=== PATIENT | female | born 1975 | race Two or more races ===

== ENCOUNTER 2019-06-07 10:06 | Inpatient (IN) | payer SELFPAY ==
[2019-06-07] VITALS (9 sets, daily range): BP systolic 95–111; BP diastolic 51–65
[~2019-06-07] VITALS: Ht 149.9 cm; Wt 71.0 kg
[2019-06-07 10:37] LABS: Eosinophils # (auto) 0.1 10 ^3/uL (0-0.8); Lymphocytes # (auto) 1.8 10 ^3/uL (0.4-5.4); Monocytes # (auto) 0.4 10 ^3/uL (0-1.3); Neutrophils # (auto) 2.7 10 ^3/uL (1.6-8.6)
[2019-06-07 10:40] LABS: Basophils # (auto) 0.1 10 ^3/uL (0-0.2); Basophils % (auto) 1.1 % (0.0-2.0); Hematocrit 18.5 % (36.0-46.0); Lymphocytes % (auto) 35.5 % (10.0-50.0); Mean Corpuscular Hemoglobin 16.6 pg (28.0-32.0); Mean Corpuscular Hgb Conc. 28.4 g/dL (32.0-36.0); Mean Corpuscular Volume 58.7 fL (80.0-100.0); Monocytes % (auto) 7.1 % (0.0-12.0); Neutrophils % (auto) 54.3 % (37.0-80.0); Nucleated Red Blood Cells % 0.3 %; Platelet Count (auto) 544 10^3/uL (140-450); Red Blood Cells 3.16 10^6/uL (4.0-5.20)
[2019-06-07 10:47] LABS: Red Cell Distribution Width 24.6 % (11.8-14.3)
[2019-06-07 10:49] LABS: Hemoglobin 5.3 g/dL (12.2-16.2)
[2019-06-07 11:08] LABS: Albumin 3.6 g/dL (3.4-5.0); BUN/Creatinine Ratio 16.7; Potassium 3.6 mmol/L (3.5-5.1)
[2019-06-07 11:11] LABS: Bilirubin, Total 0.5 mg/dL (0.2-1.0); Total Protein 8.8 g/dL (6.4-8.2)
[2019-06-07 11:16] LABS: Urine Bacteria NONE SEEN /hpf (None Seen); Urine Blood 1+ /uL (Negative); Urine WBC 1 /hpf (0 - 5)
[2019-06-07 11:53] LABS: % Iron Saturation 1.1 % (15-50)
[2019-06-07 12:09] LABS: Folate (Folic Acid) 9.7 ng/mL (5.38-24)
[2019-06-07] MEDS ORDERED: hydrALAZINE HCL 20 MG/ML VL IV PRN (12:30)
[2019-06-07] MEDS: ONDANSETRON HCL 4 MG/2 ML VIAL IV PRN (13:26)
[2019-06-07] MEDS ORDERED: IOHEXOL 300 MG/ML 100ML BOTTLE IJ ONE (13:27)
[2019-06-07] MEDS: ACETAMINOPHEN 500 MG TAB PO PRN (16:31)
--- NOTE | 2019-06-07 19:30 | NUR ---
Opening Shift Note Assumed care of patient, awake and alert. No S/S of distress/SOB or pain. Instructed on POC and to call for assist PRN, patient and family at bedside verbalized understanding. Safety measures ensured, call light within reach, will continue to monitor for changes Q1hr and PRN.
[2019-06-08] VITALS (8 sets, daily range): BP systolic 97–111; BP diastolic 59–67
[2019-06-08] MEDS: ACETAMINOPHEN 500 MG TAB PO PRN ×2 (05:09→22:42)
[2019-06-08 07:11] LABS: Mean Corpuscular Hemoglobin 20.1 pg (28.0-32.0); Monocytes # (auto) 0.5 10 ^3/uL (0-1.3); Nucleated Red Blood Cells % 0.4 %; White Blood Cell 4.7 10^3/uL (4.4-10.8)
[2019-06-08 07:14] LABS: Basophils # (auto) 0 10 ^3/uL (0-0.2); Eosinophils # (auto) 0.1 10 ^3/uL (0-0.8); Eosinophils % (auto) 2.9 % (0.0-7.0); Hematocrit 22.6 % (36.0-46.0); Lymphocytes # (auto) 1.9 10 ^3/uL (0.4-5.4); Lymphocytes % (auto) 40.4 % (10.0-50.0); Mean Corpuscular Hgb Conc. 30.5 g/dL (32.0-36.0); Monocytes % (auto) 11.2 % (0.0-12.0); Neutrophils # (auto) 2.1 10 ^3/uL (1.6-8.6); Neutrophils % (auto) 44.5 % (37.0-80.0); Platelet Count (auto) 481 10^3/uL (140-450); Red Blood Cells 3.42 10^6/uL (4.0-5.20)
[2019-06-08 07:23] LABS: Red Cell Distribution Width 31.2 % (11.8-14.3)
--- NOTE | 2019-06-08 07:25 | NUR ---
Received a critical Hgb of 6.9. Paged Hospitalist, awaiting call back. Endorsed care to DACIA Ferris
--- NOTE | 2019-06-08 07:25 | NUR ---
Opening shift note Assumed care of patient from NOC RN. Patient resting in bed, AOx4, No S/S of distress, SOB or pain,bed is in lowest locked position, and call light is within reach.awaiting for Hospitalist to call back,Updated patient on plan of care and patient verbalized understanding. Will continue to monitor Q1hr and PRN.
[2019-06-08 07:26] LABS: Hemoglobin 6.9 g/dL (12.2-16.2)
[2019-06-08 07:31] LABS: Potassium 3.8 mmol/L (3.5-5.1)
[2019-06-08 07:38] LABS: Albumin 3.3 g/dL (3.4-5.0); BUN/Creatinine Ratio 18.8; Bilirubin, Total 1.1 mg/dL (0.2-1.0); Calcium 8.2 mg/dL (8.5-10.1); Total Protein 7.9 g/dL (6.4-8.2)
[2019-06-08] MEDS: PANTOPRAZOLE 40 MG TAB PO SCH (10:11)
[2019-06-08] MEDS: traMADol HCL 50 MG TAB PO PRN ×2 (10:12→20:43)
--- NOTE | 2019-06-08 10:15 | NUR ---
PATIENT STILL C/O HEADACHE DESPITE TYLENOL GIVEN EARLIER,PATIENT MEDICATED WITH ULTRAM 50,WILL REASSES
--- NOTE | 2019-06-08 11:20 | NUR ---
NOTIFIED DR. GARRIDO INFORMED AND MADE AWARE OF Hgb.6.9,STATED WILL COME SEE AND EVALUATE PATIENT.
--- NOTE | 2019-06-08 12:25 | NUR ---
PATIENT C/O DIZZINESS VITAL SIGNS TAKEN 115/87,HR75,RR16'O2 SATURATION ON ROOM AIR 98%.O2 AT 2 LITERS NASAL CANNULA,WILL PAGED .
--- NOTE | 2019-06-08 12:35 | NUR ---
MD VISIT DR. GARRIDO HERE TO SEE AND EXAMINED PATIENT,INFORMED OF VITAL SIGNS AND O2 WAS APPLIED,EXAMINED PATIENT AND RECEIVED ORDERS.
--- NOTE | 2019-06-08 13:00 | NUR ---
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
--- NOTE | 2019-06-08 14:50 | NUR ---
MD VISIT OB GYNE HERE TO SEE AND EXAMINED PATIENT, INSTRUCTED PATIENT TO FOLLOW UP OUT PATIENT WITH AN OB G[facility] AT [facility]
--- NOTE | 2019-06-08 15:45 | NUR ---
MD VISIT DR. Demetrio REYNA HERE TO SEE AND EXAMINED PATIENT,RECEIVED ORDERS.
--- NOTE | 2019-06-08 16:05 | NUR ---
BLOOD TRANSFUSION STARTED UNIT # [id number] ( VITAL SIGNS TAKEN PER PROTOCOL ,SEE TRANSFUSION RECORD ) PATIENT INSTRUCTED TO INFORM NURSE FOR ANY TRANSFUSION REACTION NOTED,LIKE CHILLS,FEVER,BACK PAIN,SHORT OF BREATH, OR SWELLING
--- NOTE | 2019-06-08 18:00 | NUR ---
BLOOD TRANSFUSION IN PROGRESS PATIENT TOLERATING WELL
--- NOTE | 2019-06-08 19:10 | NUR ---
BLOOD TRANSFUSION ENDED NO BLOOD TRANSFUSION REACTION NOTED.
--- NOTE | 2019-06-08 19:20 | NUR ---
STATUS UNCHANGED NO DISTRESS, NO DISCOMFORT.REPORT GIVEN TO INCOMING NOC SHIFT RN
[2019-06-08] MEDS: TOPIRAMATE 25 MG TAB PO SCH (22:42)
[2019-06-09 05:00] VITALS: BP 101/62
[2019-06-09] MEDS: traMADol HCL 50 MG TAB PO PRN (06:30)
[2019-06-09 07:09] LABS: Neutrophils # (auto) 3.7 10 ^3/uL (1.6-8.6)
[2019-06-09 07:12] LABS: Basophils # (auto) 0.1 10 ^3/uL (0-0.2); Basophils % (auto) 1.2 % (0.0-2.0); Eosinophils # (auto) 0.1 10 ^3/uL (0-0.8); Eosinophils % (auto) 1.9 % (0.0-7.0); Hematocrit 26.3 % (36.0-46.0); Lymphocytes % (auto) 31.2 % (10.0-50.0); Mean Corpuscular Hemoglobin 20.9 pg (28.0-32.0); Mean Corpuscular Hgb Conc. 30.5 g/dL (32.0-36.0); Mean Corpuscular Volume 68.5 fL (80.0-100.0); Monocytes # (auto) 0.5 10 ^3/uL (0-1.3); Monocytes % (auto) 7.3 % (0.0-12.0); Neutrophils % (auto) 58.4 % (37.0-80.0); Nucleated Red Blood Cells % 0.1 %; Platelet Count (auto) 492 10^3/uL (140-450); Red Blood Cells 3.84 10^6/uL (4.0-5.20); White Blood Cell 6.3 10^3/uL (4.4-10.8)
--- NOTE | 2019-06-09 07:15 | NUR ---
Opening shift note Assumed care of patient from NOC RN. Patient resting in bed, AOx4,No SOB or pain but c/o nausea and trying to vomit.bed in lowest locked position, and call light is within reach ,Updated patient on plan of care and patient verbalized understanding. Will continue to monitor Q1hr and PRN.
[2019-06-09 07:20] LABS: INR 1.11 (0.9-1.15); Partial Thromboplastin Time 26.5 sec (23.64-32.05)
[2019-06-09 07:30] LABS: Red Cell Distribution Width 32.5 % (11.8-14.3)
--- NOTE | 2019-06-09 07:30 | NUR ---
PATIENT C/O NAUSEA AND VOMITING,MEDICATED WITH ZOFRAN SEE eMAR
[2019-06-09] MEDS: ONDANSETRON HCL 4 MG/2 ML VIAL IV PRN (07:59)
[2019-06-09 09:00] VITALS: BP 122/72
[2019-06-09] MEDS ORDERED: SODIUM CHLORIDE 0.9% 1,000 ML IV SCH ×2 (09:00→13:00)
[2019-06-09] MEDS ORDERED: DexAMETHasone INJECTION 10 MG in D5W 5% 50 ML IV SCH (10:00)
[2019-06-09] MEDS: PANTOPRAZOLE 40 MG TAB PO SCH (10:36)
[2019-06-09] MEDS: TOPIRAMATE 25 MG TAB PO SCH ×2 (10:36→23:15)
--- NOTE | 2019-06-09 11:30 | NUR ---
MD VISIT DR.N. REYNA HERE TO SEE AND EXAMINED PATIENT,CLARIFIED ORDER FOR EGD,STATED WILL BE DONE TODAY AROUND 1330,INFORMED PATIENT ATE SMALL AMOUNT OF BAGEL FOR BREAKFAST,RECEIVED ORDER TO GIVE REGLAN 10 MG NOW.
[2019-06-09] MEDS ORDERED: METOCLOPRAMIDE HCL 5MG/ml INJ 2ml VIAL IV ONE (11:45)
[2019-06-09] MEDS ORDERED: SODIUM CHLORIDE LOCK 10 ML ONE (12:07)
[2019-06-09] MEDS ORDERED: FLUMAZENIL 0.1 MG/ML INJ 10ML MDV IV ONE (12:07)
[2019-06-09] MEDS ORDERED: NALOXONE HCL 0.4 MG/ML VIAL ONE (12:07)
[2019-06-09] MEDS ORDERED: LIDOCAINE VISCOUS 2% 15ML UD ONE (12:07)
[2019-06-09] MEDS ORDERED: diphenhdrAMINE HCL 50 MG/1 ML VL ONE (12:08)
--- NOTE | 2019-06-09 12:49 | NUR ---
CONSENT FOR EGD SIGNED BY PATIENT
[2019-06-09] MEDS ORDERED: FER325T PO (12:51)
[2019-06-09 13:00] VITALS: BP 107/64
[2019-06-09] MEDS ORDERED: SODIUM FERR GLUC 62.5MG/5ML 125 MG in SODIUM CHL 0.9% 100 ML IV ONE (13:00)
--- NOTE | 2019-06-09 13:10 | NUR ---
TO GI LAB VIA BED FOR EGD
[2019-06-09] MEDS: MIDAZOLAM HCL 5 MG/ML-1ML VIAL ONE ×2 (13:29→13:31)
[2019-06-09] MEDS: fentaNYL CITRATE 100 MCG/2 ML VL ONE ×2 (13:29→13:31)
[2019-06-09] MEDS: METOCLOPRAMIDE HCL 10 MG TAB PO SCH ×2 (14:00→23:15)
[2019-06-09] MEDS ORDERED: IRON SUCROSE COMPLEX 200 MG in SODIUM CHL 0.9% 100 ML IV ONE (14:15)
--- NOTE | 2019-06-09 14:15 | NUR ---
RECEIVED FROM PACU S/P EGD NO DISTRESS NO DISCOMFORT NO C/O NAUSEA OR VOMITING
[2019-06-09] MEDS: SODIUM CHLORIDE 0.9% 1,000 ML IV SCH ×2 (15:05→20:53)
[2019-06-09 17:19] VITALS: BP 113/63
[2019-06-09] MEDS: SUCRALFATE 1 GM/10 ML ORAL SUSP PO SCH ×2 (17:35→23:14)
--- NOTE | 2019-06-09 19:06 | NUR ---
STATUS UNCHANGED,NO DISTRESS NO DISCOMFORT ,REPORT GIVEN TO INCOMING RN
[2019-06-09 22:00] VITALS: BP 114/51
[2019-06-10] MEDS: SODIUM CHLORIDE 0.9% 1,000 ML IV SCH (04:45)
[2019-06-10 05:03] VITALS: BP 96/61
--- NOTE | 2019-06-10 05:16 | NUR ---
PATIENT HAD NO BOWEL MOVEMENT AND SO NO STOOL SENT TO LAB ORDERED FOR OCCULT BLOOD.
--- NOTE | 2019-06-10 05:21 | NUR ---
SLEPT WELL BUT WAKES TO USE THE BATHROOM.
[2019-06-10] MEDS: METOCLOPRAMIDE HCL 10 MG TAB PO SCH (06:11)
[2019-06-10 06:14] LABS: Hematocrit 25.7 % (36.0-46.0)
--- NOTE | 2019-06-10 06:25 | NUR ---
CRITICAL LAB RESULT CALLED AT 0625. HEMOGLOBIN 6G/DL HOSPITALIST [place]. AWAITING RESPONSE. Addendum: 06/10/19 at 0631 by OCTAVIO MUNOZ RN RN WRONG PATIENT.
[2019-06-10] MEDS: SUCRALFATE 1 GM/10 ML ORAL SUSP PO SCH ×2 (06:35→11:52)
--- NOTE | 2019-06-10 07:30 | NUR ---
Opening Shift Note Assumed care of patient, awake and alert. No S/S of distress/SOB or pain. Instructed on POC and to call for assist PRN, will continue to monitor for changes Q1hr and PRN.
--- NOTE | 2019-06-10 08:19 | NUR ---
Discussed with pt eligibility options for medical coverage based on their current situation. Pt referred to Shena Martin, [facility] [employer] Specialist to assist with process for Med-klarissa insurance coverage. Advised pt that additional information regard D/?C planning would be provided prior to their discharge. Will follow up with Dale regarding the insurance status. currently listed as having no current
[2019-06-10 09:28] VITALS: BP 95/64
[2019-06-10] MEDS ORDERED: PANT40TA2 PO (10:04)
[2019-06-10] MEDS ORDERED: TOPI25TA84 PO (10:04)
[2019-06-10] MEDS: TOPIRAMATE 25 MG TAB PO SCH (10:16)
[2019-06-10] MEDS: PANTOPRAZOLE 40 MG TAB PO SCH (10:16)
--- NOTE | 2019-06-10 11:00 | NUR ---
Dr. Rodriges in to see patient as hospitalist.
[2019-06-10] MEDS ORDERED: IRON SUCROSE COMPLEX 200 MG in SODIUM CHL 0.9% 100 ML IV SCH (12:00)
[2019-06-10] MEDS ORDERED: SUCR1TAB38 PO (13:15)
[2019-06-10 14:16] VITALS: BP 109/72
[2019-06-10 15:04] VITALS: BP 95/64
--- NOTE | 2019-06-10 15:57 | NUR ---
assessment Patient is a 43 year old female who is alert and oriented. Patients cognitive abilities are intact. Prior to admission patient lived home with family and functioned independently. Patient informed me she is able to care for her own ADLs. Per patient she will return home to her prior living arrangements post discharge and family will transport her home. Patient has no insurance. Per patient her family income is 1,500.00 per month. Patient has been assessed by Dale Martin of [facility]. Patient may qualify for Medi-klarissa if she brings back all her paperwork. I have provided patient with resources for [facility], Dr. Hughes, and [facility] urgent care for follow up visits. I have provided patient with a prescription card from community assistance program. I informed patient she has a right to speak to a clinical social work therapist regarding all care. I informed patient she has a right to participate in any and all discharge planning. Patient does not have a POA and advanced directive. I have offered patient information on POA and advanced directives. I informed the patient the advantages and benefits of having an Advanced Directive. Patient verbalized understanding and agreed to discharge plan. Addendum: 06/10/19 at 1558 by Flower VILCHIS Amended: Links added.
== END 2019-06-10 17:30 | disposition home or self-care (01) | DRG 103 ==
LOC: ER 10:06 → OVERFLOW 10:07 → WEST WING 14:13
PROVIDERS: ADMIT Nurse Practitioner Acute Care; ATTEND Internal Medicine
PROC: 30233N1 Transfusion of Nonautologous Red Blood Cells into Peripheral Vein, Percutaneous Approach (ICD-10-PCS; principal; 2019-06-07)
PROC: 0DB68ZZ Excision of Stomach, Via Natural or Artificial Opening Endoscopic (ICD-10-PCS; 2019-06-09)
PROC: 0DB88ZX Excision of Small Intestine, Via Natural or Artificial Opening Endoscopic, Diagnostic (ICD-10-PCS; 2019-06-09)
DX: G43.101 Migraine with aura, not intractable, with status migrainosus (principal); D50.0 Iron deficiency anemia secondary to blood loss (chronic); G43.B0 Ophthalmoplegic migraine, not intractable; K29.70 Gastritis, unspecified, without bleeding; K44.9 Diaphragmatic hernia without obstruction or gangrene; K31.7 Polyp of stomach and duodenum; T50.995A Adverse effect of other drugs, medicaments and biological substances, initial encounter; N92.0 Excessive and frequent menstruation with regular cycle; N92.1 Excessive and frequent menstruation with irregular cycle; Z79.899 Other long term (current) drug therapy; Z82.49 Family history of ischemic heart disease and other diseases of the circulatory system; Z83.3 Family history of diabetes mellitus; Z98.891 History of uterine scar from previous surgery; Z90.89 Acquired absence of other organs; Z90.49 Acquired absence of other specified parts of digestive tract; Z82.61 Family history of arthritis; Z83.42 Family history of familial hypercholesterolemia; Y92.098 Other place in other non-institutional residence as the place of occurrence of the external cause
CPT/HCPCS: 36415; 43239; 43251; 70450; 74177; 76856; 80053; 81001; 81025; 82378; 82607; 82746; 83540; 83550; 84443; 85014; 85018; 85025; 85045; 85610; 85730; 86677; 86850; 86900; 86901; 86920; 99291; G0378; J1100; J1756; J2250; J2405; J7060

== ENCOUNTER 2019-07-09 16:56 | Emergency (ER) | payer SELFPAY ==
[~2019-07-09] VITALS: Ht 149.9 cm; Wt 65.8 kg
[~2019-07-09 16:56] MED LIST: FER325T PO; PANT40TA2 PO; SUCR1TAB38 PO; TOPI25TA84 PO
[2019-07-09 17:11] VITALS: BP 118/64
[2019-07-09 17:31] LABS: Basophils # (auto) 0 10 ^3/uL (0-0.2); Basophils % (auto) 0.5 % (0.0-2.0); Eosinophils # (auto) 0.1 10 ^3/uL (0-0.8); Hematocrit 33.8 % (36.0-46.0); Hemoglobin 11.1 g/dL (12.2-16.2); Mean Corpuscular Hemoglobin 26.1 pg (28.0-32.0); Mean Corpuscular Hgb Conc. 32.8 g/dL (32.0-36.0); Mean Corpuscular Volume 79.5 fL (80.0-100.0); Monocytes # (auto) 0.5 10 ^3/uL (0-1.3); Neutrophils # (auto) 4.4 10 ^3/uL (1.6-8.6); Nucleated Red Blood Cells % 0.1 %; Red Blood Cells 4.25 10^6/uL (4.0-5.20)
[2019-07-09 17:33] LABS: Eosinophils % (auto) 1.5 % (0.0-7.0); Lymphocytes # (auto) 2.4 10 ^3/uL (0.4-5.4); Lymphocytes % (auto) 31.6 % (10.0-50.0); Monocytes % (auto) 7.2 % (0.0-12.0); Neutrophils % (auto) 59.2 % (37.0-80.0); Platelet Count (auto) 245 10^3/uL (140-450); White Blood Cell 7.5 10^3/uL (4.4-10.8)
[2019-07-09 17:42] LABS: Albumin 3.6 g/dL (3.4-5.0); Calcium 7.9 mg/dL (8.5-10.1); Potassium 3.6 mmol/L (3.5-5.1)
[2019-07-09 17:46] LABS: BUN/Creatinine Ratio 19.4; Bilirubin, Total 0.3 mg/dL (0.2-1.0); Total Protein 8.4 g/dL (6.4-8.2)
[2019-07-09 18:05] LABS: Red Cell Distribution Width 33.9 % (11.8-14.3)
== END 2019-07-09 18:15 | disposition home or self-care (01) ==
LOC: ER 16:56
DX: N93.8 Other specified abnormal uterine and vaginal bleeding (principal); Z90.49 Acquired absence of other specified parts of digestive tract; Z79.899 Other long term (current) drug therapy
CPT/HCPCS: 36415; 80053; 85025

== ENCOUNTER 2022-01-14 18:14 | Emergency (ER) | payer SELFPAY ==
[~2022-01-14] VITALS: Ht 149.9 cm; Wt 72.7 kg
[~2022-01-14 18:14] MED LIST changes: +SUCR1TAB22 PO; -SUCR1TAB38 PO
[2022-01-14 19:45] LABS: Basophils # (auto) 0.1 10 ^3/uL (0-0.2); Eosinophils # (auto) 0.1 10 ^3/uL (0-0.8); Eosinophils % (auto) 0.7 % (0.0-7.0); Lymphocytes # (auto) 1.4 10 ^3/uL (0.4-5.4)
[2022-01-14 19:47] LABS: Basophils % (auto) 0.6 % (0.0-2.0); Hematocrit 29.4 % (36.0-46.0); Hemoglobin 8.8 g/dL (12.2-16.2); Lymphocytes % (auto) 13.2 % (10.0-50.0); Mean Corpuscular Hemoglobin 19.6 pg (28.0-32.0); Mean Corpuscular Volume 65.4 fL (80.0-100.0); Monocytes # (auto) 0.8 10 ^3/uL (0-1.3); Neutrophils # (auto) 8.6 10 ^3/uL (1.6-8.6); Neutrophils % (auto) 78.5 % (37.0-80.0); White Blood Cell 10.9 10^3/uL (4.4-10.8)
[2022-01-14 20:05] LABS: Red Cell Distribution Width 25.2 % (11.8-14.3)
[2022-01-14 20:09] LABS: Albumin 3.6 g/dL (3.4-5.0); Potassium 3.1 mmol/L (3.5-5.1)
[2022-01-14 20:13] LABS: BUN/Creatinine Ratio 14.7; Bilirubin, Total 0.4 mg/dL (0.2-1.0); Total Protein 8.8 g/dL (6.4-8.2)
[2022-01-14] MEDS ORDERED: POTASSIUM CHL 20 Meq TABLET PO ONE (21:00)
[2022-01-14] MEDS ORDERED: HYDR-4902 PO (21:19)
[2022-01-14] MEDS ORDERED: ONDA-144 PO (21:19)
[2022-01-14] MEDS ORDERED: ONDANSETRON ODT 4 MG TAB PO ONE (21:30)
[2022-01-14] MEDS ORDERED: HYDROcodone-ACET 10/325MG TAB PO ONE (21:30)
[2022-01-14 21:50] VITALS: BP 122/76
== END 2022-01-15 01:12 | disposition home or self-care (01) ==
LOC: EDBD 18:14 → ER 18:16
DX: E87.6 Hypokalemia (principal); N20.0 Calculus of kidney; R10.2 Pelvic and perineal pain; Z90.49 Acquired absence of other specified parts of digestive tract
CPT/HCPCS: 36415; 74176; 80053; 82150; 83690; 84702; 85025; 93005; 99285; Q0162

== ENCOUNTER 2023-07-10 12:20 | Inpatient (IN) | payer SELFPAY ==
[~2023-07-10] VITALS: Ht 149.9 cm; Wt 74.2 kg
[~2023-07-10 12:20] MED LIST changes: +HYDR-4902 PO; +ONDA-144 PO; -SUCR1TAB22 PO; +SUCR1TAB31 PO
[2023-07-10 13:43] LABS: Basophils # (auto) 0 10 ^3/uL (0-0.2); Eosinophils # (auto) 0.1 10 ^3/uL (0-0.8); Lymphocytes # (auto) 2.1 10 ^3/uL (0.4-5.4); Neutrophils # (auto) 3.9 10 ^3/uL (1.6-8.6); Red Blood Cells 3.92 10^6/uL (4.0-5.20)
[2023-07-10 13:45] LABS: Basophils % (auto) 0.5 % (0.0-2.0); Eosinophils % (auto) 1.8 % (0.0-7.0); Hematocrit 23.3 % (36.0-46.0); Lymphocytes % (auto) 31.6 % (10.0-50.0); Mean Corpuscular Hemoglobin 16.8 pg (28.0-32.0); Mean Corpuscular Hgb Conc. 28.2 g/dL (32.0-36.0); Mean Corpuscular Volume 59.5 fL (80.0-100.0); Monocytes # (auto) 0.5 10 ^3/uL (0-1.3); Monocytes % (auto) 7.9 % (0.0-12.0); Neutrophils % (auto) 58.2 % (37.0-80.0); Nucleated Red Blood Cells % 0.1 %; White Blood Cell 6.6 10^3/uL (4.4-10.8)
[2023-07-10 13:54] LABS: Red Cell Distribution Width 21.5 % (11.8-14.3)
[2023-07-10 13:57] LABS: Urine Bacteria None Seen /hpf (None Seen)
[2023-07-10 14:01] LABS: Hemoglobin 6.6 g/dL (12.2-16.2)
[2023-07-10 14:16] LABS: Urine Blood Negative /uL (Negative); Urine Clarity Turbid (Clear); Urine Color Light-Yellow (Yellow); Urine Hyaline Cast FEW /lpf (0 - 2); Urine Mucus FEW (None Seen); Urine Protein, UAD Negative (Negative); Urine Specific Gravity 1.016 (1.001-1.035); Urine Urobilinogen Normal (Negative); Urine WBC 1 /hpf (0 - 5); Urine pH 6.5 (5.0-9.0)
[2023-07-10 14:54] LABS: Platelet Estimate Adequate
[2023-07-10 14:55] LABS: Anisocytosis Slight; Hypochromia Marked; Stomatocytes Few
[2023-07-10] MEDS ORDERED: ALBUTEROL SULF 2.5 MG/0.5ML(0.5%) NEB SOLN NEB PRN (16:45)
[2023-07-10] MEDS ORDERED: HYDROcodone-ACET 5/325MG TAB PO PRN (16:45)
[2023-07-10] MEDS ORDERED: MORPHINE SULFATE INJ 2 MG/ml SYRG IV PRN (16:45)
[2023-07-10] MEDS ORDERED: IPRATROPIUM BROM 0.5 MG/2.5ML INH SOL NEB PRN (16:45)
[2023-07-10] MEDS ORDERED: DOCUSATE SOD 100 MG CAP PO PRN (16:45)
[2023-07-10] MEDS ORDERED: ONDANSETRON HCL 4 MG/2 ML VIAL IV PRN (16:45)
[2023-07-10 17:12] LABS: % Iron Saturation 4.3 % (15-50)
[2023-07-10 21:20] VITALS: BP 141/64; PULSE 82; RESP 16; TEMP 99.2; O2SAT 98
[2023-07-11] VITALS (12 sets, daily range): BP systolic 95–122; BP diastolic 54–80; PULSE 53–87; RESP 12–19; TEMP 36.8; O2SAT 97–98
[2023-07-11] MEDS: ACETAMINOPHEN 500 MG TAB PO PRN (05:29)
[2023-07-11] MEDS ORDERED: IRON SUCROSE COMPLEX 100 ML IV SCH (12:00)
[2023-07-11 13:54] LABS: Hematocrit 29.5 % (36.0-46.0); Hemoglobin 8.9 g/dL (12.2-16.2)
[2023-07-11] MEDS ORDERED: FERR-7 PO (14:24)
== END 2023-07-11 17:20 | disposition home or self-care (01) | DRG 812 ==
LOC: ER 12:20 → OVERFLOW 16:52 → CENTRAL 07-11 06:37
PROVIDERS: ADMIT Nurse Practitioner Acute Care; ATTEND Nurse Practitioner Acute Care
PROC: 30233N1 Transfusion of Nonautologous Red Blood Cells into Peripheral Vein, Percutaneous Approach (ICD-10-PCS; principal; 2023-07-11)
DX: D50.9 Iron deficiency anemia, unspecified (principal); N92.6 Irregular menstruation, unspecified; E66.9 Obesity, unspecified; N92.0 Excessive and frequent menstruation with regular cycle; Z90.49 Acquired absence of other specified parts of digestive tract; Z79.899 Other long term (current) drug therapy; Z68.33 Body mass index [BMI] 33.0-33.9, adult; Z82.49 Family history of ischemic heart disease and other diseases of the circulatory system; Z83.3 Family history of diabetes mellitus; Z83.42 Family history of familial hypercholesterolemia; Z82.61 Family history of arthritis
CPT/HCPCS: 36415; 76856; 81001; 83540; 83550; 85014; 85018; 85025; 86850; 86900; 86901; 86920; G0378

== ENCOUNTER 2023-10-13 12:00 | Emergency (ER) | payer SELFPAY ==
[~2023-10-13] VITALS: Ht 149.9 cm; Wt 75.1 kg
[~2023-10-13 12:00] MED LIST changes: +FERR-7 PO
[2023-10-13 13:21] VITALS: BP 111/69; PULSE 70; RESP 17; TEMP 97.8; O2SAT 95
[2023-10-13 13:59] LABS: Urine Bacteria FEW /hpf (None Seen); Urine Blood 2+ /uL (Negative); Urine Clarity Turbid (Clear); Urine Mucus FEW (None Seen); Urine Protein, UAD 1+ (Negative); Urine Specific Gravity 1.022 (1.001-1.035); Urine Urobilinogen Normal (Negative); Urine WBC 668 /hpf (0 - 5)
[2023-10-13 14:03] LABS: Urine Color STRAW (Yellow)
[2023-10-13] MEDS ORDERED: NITR-87 PO (14:15)
== END 2023-10-13 14:27 | disposition home or self-care (01) ==
LOC: ER 12:00
DX: N39.0 Urinary tract infection, site not specified (principal); Z79.899 Other long term (current) drug therapy; Z79.891 Long term (current) use of opiate analgesic; Z90.49 Acquired absence of other specified parts of digestive tract; Z98.890 Other specified postprocedural states
CPT/HCPCS: 81001

== ENCOUNTER 2024-02-23 12:30 | Emergency (ER) | payer MEDICAID, SELFPAY ==
[~2024-02-23] VITALS: Ht 149.9 cm; Wt 79.3 kg
[~2024-02-23 12:30] MED LIST changes: +NITR-87 PO
[2024-02-23 12:42] VITALS: BP 135/74; PULSE 83; RESP 20; O2SAT 96
--- NOTE | 2024-02-23 13:01 | ED.PDOC ---
SAMPLE PULLER HPI Comments 48y F who presents to the ED for chief complaint of vaginal bleeding. Pt states she has history of heavy periods and states she has been having heavy periods with associated lower pelvic pain. Pt states she has been having heavy periods since October 06, 2023 and states she has been going through 7-8 pads daily. Pt states she has been having associated nausea, dizziness and lightheaded but otherwise denies headache, dysuria, fever, cough, chills,or hematuria. Pt states she has been to OB for her complaints and states she previously had imaging done which came back unremarkable. Pt otherwise has been taking Pepcid for her abdominal pain and states she also takes iron pills for her anemia. Pt otherwise has noted stable vitals in the ED with all vitals in normal range. Pt otherwise denies any other symptoms at this time. Chief Complaint: Vaginal Bleed Time Seen by MD: 12:59 Reviewed Notes: Medications Allergies: Coded Allergies: NO KNOWN ALLERGIES (Unverified , 06/07/19) Home Meds Active Scripts Dicyclomine Hcl (BENTYL CAPSULE) 10 Mg Cp, 2 CAP PO QID PRN, #30 CAP 11 Refills prn abdominal pain Prov:ANGELICA CARDONA MD 02/23/24 Ondansetron Odt 4MG Tab (ZOFRAN PO) 4 Mg Tb, 4 MG PO TID PRN, #30 TAB prn nausea/vomiting ODT TAB-DISSOLVE IN MOUTH, THEN SWALLOW Prov:ANGELICA CARDONA MD 02/23/24 Medroxyprogesterone Acetate (Medroxyprogesterone Aceta) 10 Mg Tab, 10 MG PO DAILY for 10 Days, #10 TAB Prov:ANGELICA CARDONA MD 02/23/24 Nitrofurantoin Monohydrate Mac (Macrobid) 100 Mg Cap, 100 MG PO BID for 7 Days, #14 CAP Prov:KATARINA KRAMER 10/13/23 Ferrous Sulfate (Iron) 325 Mg Tab, 325 MG PO BID for 60 Days, #120 TAB Prov:SHIV KIRBY NP 07/11/23 Hydrocodone-Acetaminophen (Hydrocodone Bitartrate/AC 5-325 mg) 1 Tab Tab, 1 TAB PO QIDPRN, #20 TAB Prov:MARCI GALVIN MD 01/14/22 Ondansetron (Zofran) 4 Mg Tab, 4 MG PO QIDPRN, #20 MG Prov:MARCI GALVIN MD 01/14/22 Sucralfate (CARAFATE) 1 Gm Tab, 1 GM PO BID, #60 TAB Prov:RACHAEL GARRIDO MD 06/10/19 Topiramate (Topiramate) 25 Mg Tab, 25 MG PO BID, #60 TAB Prov:RCAHAEL GARRIDO MD 06/10/19 Pantoprazole Sodium Sesquihydr (Protonix) 40 Mg Tab, 40 MG PO DAILY, #30 TAB Prov:RACHAEL GARRIDO MD 06/10/19 Ferrous Sulfate (FERROUS SULFATE) 325 Mg Tb, 1 TAB PO BID, #60 TAB Prov:RACHAEL GARRIDO MD 06/09/19 Information Source: Patient Mode of Arrival: Ambulatory Brought in by: self Past Medical History PAST MEDICAL HISTORY: Anemia Surgical History: Cholecystectomy, , 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) Family History Family History: Reviewed,noncontributory to illness Social History Smoker: Non-Smoker Alcohol: Denies ETOH Use Drugs: Denies Drug Use Lives In: Home Constitutional: denies: chills, diaphoresis, fatigue, fever, malaise, sweats, weakness, others EENTM: denies: blurred vision, double vision, ear bleeding, ear discharge, ear drainage, ear pain, ear ringing, eye pain, eye redness, hearing loss, mouth pain, mouth swelling, nasal discharge, nose bleeding, nose congestion, nose pain, photophobia, tearing, throat pain, throat swelling, voice changes, others Respiratory: denies: cough, hemoptysis, orthopnea, SOB at rest, shortness of breath, SOB with excertion, stridor, wheezing, others Cardiovascular: denies: chest pain, dizzy spells, diaphoresis, Dyspnea on exertion, edema, irregular heart beat, left arm pain, lightheadedness, palpitations, PND, syncope, others Gastrointestinal: reports: nausea; denies: abdomen distended, abdominal pain, blood streaked bowels, constipated, diarrhea, dysphagia, difficulty swallowing, hematemesis, melena, poor appetite, poor fluid intake, rectal bleeding, rectal pain, vomiting, others Genitourinary: reports: abnormal vagina bleeding; denies: burning, dyspareunia, dysuria, flank pain, frequency, hematuria, incontinence, pain, , vagina discharge, urgency, others Neurological: reports: dizziness; denies: fainting, headache, left sided numbness, left sided weakness, numbness, paresthesia, pre-existing deficit, right sided numbness, right sided weakness, seizure, speech problems, tingling, tremors, weakness, others Musculoskeletal: denies: back pain, gout, joint pain, joint swelling, muscle pain, muscle stiffness, neck pain, others Integumetry: denies: bruises, change in color, change in hair/nails, dryness, laceration, lesions, lumps, rash, wounds, others Allergic/Immunocompromised: denies: Difficulty Healing, Frequent Infections, Hives, Itching, others Hematologic/Lymphatic: denies: anemia, blood clots, easy bleeding, easy bruising, swollen glands, others Endocrine: denies: excessive hunger, excessive sweating, excessive thirst, excessive urination, flushing, intolerance to cold, intolerance to heat, unexplained weight gain, unexplained weight loss, others Psychiatric: denies: anxiety, bipolar disorder, depression, hopeless, panic disorder, schizophrenia, sleepless, suicidal, others All Other Systems: Reviewed and Negative Physical Exam General Appearance: No Apparent Distress, Obese HEENT: Other (Pupils symmetric, no facial asymmetry, moist mucous membranes) Neck: Full Range of Motion, Normal Inspection Respiratory: Lungs Clear, No Accessory Muscle Use, No Respiratory Distress, Normal Breath Sounds Cardiovascular: No Edema, No JVD, Regular Rate/Rhythm Breast Exam: Deferred Gastrointestinal: LLQ, RLQ, Soft, Suprapubic, Tenderness Genitalia: Deferred Pelvic: Deferred Rectal: Deferred Extremities: Normal inspection, Normal range of motion, Non-tender, No pedal edema Neurologic: Alert (Oriented x4), Other (Ambulatory without difficulty, no gross focal deficit.) Cerebellar Function: NOT DONE Reflexes: NOT DONE Skin: Dry, Pallor, Warm Lymphatic: NOT DONE Was a procedure done? 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) Vaginal Bleeding: Hormonal, Menorrhagia, Menstrual Bleeding, Myomatous Uterus, UTI, Vaginitis, Other (severe anemia, appendicitis, colitis, diverticular disease, gastroenteritis, among others) X-Ray, Labs, Meds, VS Vital Signs Date Time Temp Pulse Resp B/P (MAP) Pulse Ox O2 Delivery O2 Flow Rate FiO2 02/23/24 12:42 97.8 83 20 135/74 (94) 96 Lab Test 02/23/24 13:16 02/23/24 13:14 Range/Units White Blood Count 7.8 4.4-10.8 10^3/uL Red Blood Count 4.12 4.0-5.20 10^6/uL Hemoglobin 10.4 L 12.2-16.2 g/dL Hematocrit 32.4 L 36.0-46.0 % Mean Corpuscular Volume 78.6 L 80.0-100.0 fL Mean Corpuscular Hemoglobin 25.3 L 28.0-32.0 pg Mean Corpuscular Hemoglobin Concent 32.1 32.0-36.0 g/dL Red Cell Distribution Width 18.7 H 11.8-14.3 % Platelet Count 455 H 140-450 10^3/uL Mean Platelet Volume 7.2 6.9-10.8 fL Neutrophils (%) (Auto) 63.2 37.0-80.0 % Lymphocytes (%) (Auto) 28.8 10.0-50.0 % Monocytes (%) (Auto) 6.1 0.0-12.0 % Eosinophils (%) (Auto) 1.6 0.0-7.0 % Basophils (%) (Auto) 0.3 0.0-2.0 % Neutrophils # (Auto) 4.9 1.6-8.6 10 ^3/uL Lymphocytes # (Auto) 2.3 0.4-5.4 10 ^3/uL Monocytes # (Auto) 0.5 0-1.3 10 ^3/uL Eosinophils # (Auto) 0.1 0-0.8 10 ^3/uL Basophils # (Auto) 0 0-0.2 10 ^3/uL Nucleated Red Blood Cells 0.1 % Prothrombin Time 10.5 9.3-11.8 sec Prothrombin Time INR 0.99 0.9-1.15 Activated Partial Thromboplast Time 25.7 24.5-34.5 SEC Sodium Level 139 136-145 mmol/L Potassium Level 3.5 3.5-5.1 mmol/L Chloride Level 104 98-107 mmol/L Carbon Dioxide Level 28 20-31 mmol/L Anion Gap 7 5-15 Blood Urea Nitrogen 9 9-23 mg/dL Creatinine 0.61 0.550-1.02 mg/dL Glomerular Filtration Rate Calc 110 >90 mL/min BUN/Creatinine Ratio 14.8 10.0-20.0 Serum Glucose 124 H 74-106 mg/dL Calcium Level 8.9 8.7-10.4 mg/dL Beta HCG, Quantitative 1.3 L 1.5-4.2 mIU/mL Urine Color Light-red Yellow Urine Clarity Ex.turbid Clear Urine pH 5.5 5.0-9.0 Urine Specific [place] 1.025 1.001-1.035 Urine Protein 1+ H Negative Urine Ketones Trace Negative Urine Blood 3+ H Negative /uL Urine Nitrite Negative Negative Urine Bilirubin Negative Negative Urine Urobilinogen Normal Negative mg/dL Urine Leukocyte Esterase 1+ Negative /uL Urine RBC 9919 0 - 4 /hpf Urine WBC 110 0 - 5 /hpf Urine Squamous Epithelial Cells None seen <5 /hpf Urine Bacteria None seen None Seen /hpf Urine Glucose Normal Normal mg/dL [place] [address] Ph: [phone] DIAGNOSTIC IMAGING Diagnostic Imaging Report : [id number] Signed PATIENT: HILDA HILL: [id number] UNIT: [id number] : 1975 LOC: ER ROOM / BED: / AGE / SEX: 48 / F ADM STATUS: REG ER SERVICE 1251 ORDERING PHYSICIAN: ANGELICA CARDONA MD PROCEDURE(s): PELUS - PELVIC REASON: vag bleed ORDER NUMBER(s): [id number], ACCESSION NUMBER(s): [id number] CLINICAL HISTORY: Vaginal bleeding COMPARISON: US PELVIC on DOS: 07/10/23, PELVIC on DOS: 06/07/19 TECHNIQUE: Transabdominal grayscale sonographic imaging of the uterus and ovaries was performed, assisted by color Doppler technique. Duplex Doppler ultrasound of both ovaries was also performed. Patient refused transvaginal imaging. FINDINGS: The uterus measures 13.0 x 6.5 x 5.6 cm. There is heterogeneous echogenicity. Hypoechoic mass along the left side of the uterine fundus , likely subserosal fibroid measuring up to 1.8 cm. Endometrial thickness measures 0.8 cm, within normal limits or premenopausal. Cervix appears prominent. Heterogeneous echogenicity of the cervix. Possible small fluid collection in the cervix Neither ovary was able to be visualized. IMPRESSION: 1. Heterogeneous uterus with possible fibroid. 2. Cervix is prominent and heterogeneous with suspected fluid in the endocervical canal. 3. Neither ovary was able to be visualized. ATED BY: CHAPITO FLORES DO DICTATED DATE/TIME: 02/23/24 1440 PROCEDURE(s): ABPL - CT AB PEL WO CON-NO ORAL OR IV REASON: low abd pain ORDER NUMBER(s): [id number], ACCESSION NUMBER(s): [id number] Procedure: CT CT AB PEL WO CON-NO ORAL OR IV 02/23/2024 02:17 PM Indication: low abd pain Comparison Study: None available at time of dictation. Technique: Axial images were obtained and reformatted in coronal and sagittal planes. All CT scans at this medical facility are performed using dose modulation techniques as appropriate to a performed exam including the following: Automated exposure control was utilized; adjustment of the MA and/or KV according to patient size; and use of iterative reconstruction technique. CT Dose: CTDI volume is 15.32 mGy. Dose-length product is 769.51 mGy*cm FINDINGS: Lower Chest: Unremarkable. Hepatobiliary: Gallbladder is surgically absent. Hepatic steatosis. Spleen: Unremarkable. Pancreas: Unremarkable. Adrenal Glands: Unremarkable. tract: The kidneys are normal in size bilaterally without hydronephrosis . Few subcentimeter nonobstructing bilateral renal calculi are seen measuring up to 3 mm The urinary bladder is unremarkable. GI tract: The stomach is grossly normal in appearance. No evidence of small bowel obstruction. The large bowel is unremarkable. The appendix is normal. Lymphatics: No mesenteric, retroperitoneal or periportal lymphadenopathy. Vasculature: The abdominal aorta is normal in in caliber. Pelvic Organs: Elongated uterus. No adnexal lesions identified. Bones/soft tissues: No acute abnormality. Other: None. IMPRESSION: 1. No CT evidence for acute intra-abdominal or intrapelvic process. X-Ray, Labs, Meds, VS Comment 48-year-old female with a history of anemia and heavy menses complaining of ongoing heavy vaginal bleeding and lower abdominal pain Vitals unremarkable Exam remarkable for lower abdominal tenderness to palpation, mild pallor Pelvic ultrasound: IMPRESSION: 1. Heterogeneous uterus with possible fibroid. 2. Cervix is prominent and heterogeneous with suspected fluid in the endocervical canal. 3. Neither ovary was able to be visualized. CT abdomen and pelvis unremarkable CBC remarkable for hemoglobin 10.4, hematocrit 32.4, platelets 455, basic metabolic panel, coag panel, lactate and hCG unremarkable for any abnormality of acute significance UA shows protein, blood, leukocyte esterase, RBCs and WBCs, no bacteria. Likely represents a contaminated specimen Patient treated with the following in the ED: Cobb 5/325 mg p.o., Zofran ODT 4 mg p.o. On re-evaluation, patient states pain has improved, vitals are stable, repeat abdominal exam is benign. Hospitalization was considered, however patient had rapid improvement of her symptoms with treatment in the ED, and I no longer feel hospitalization is necessary. Patient appears stable for outpatient follow-up with OBGYN. She will be referred to Dr. Guido. Rx Glenn Avalos Bentyl Time of 1ST Reevaluation: 13:30 Reevaluation 1ST: Unchanged Time of 2ND Reevaluation: 16:26 Patient Education/Counseling: Diagnosis, Treatment Family Education/Counseling: No Family Present Departure 1 Departure Time of Disposition: 16:26 Impression: Primary Impression: Vaginal bleeding Additional Impressions: Anemia Qualified Codes: D64.9 - Anemia, unspecified Uterine fibroid Qualified Codes: D25.9 - Leiomyoma of uterus, unspecified Disposition: HOME / SELF CARE / HOMELESS Condition: Stable Referrals: LINDA GUIDO DO Additional Instructions: Your blood tests showed mild anemia. You do not require a blood transfusion. Your ultrasound showed a uterine fibroid, which is a benign growth that can cause bleeding. Your ultrasound report is below. Your CT scan was unremarkable. I have prescribed medication that may slow down or stop the bleeding. Follow-up establish care with an OBGYN in 1-2 days. I have referred you to Dr. Guido. [address] [address] Ph: [phone] DIAGNOSTIC IMAGING Diagnostic Imaging Report : [id number] Signed PATIENT: CRISTINA HILL ACCT: [id number] UNIT: [id number] : 1975 LOC: ER ROOM / BED: / AGE / SEX: 48 / F ADM STATUS: REG ER SERVICE 1251 ORDERING PHYSICIAN: ANGELICA CARDONA MD PROCEDURE(s): PELUS - PELVIC REASON: vag bleed ORDER NUMBER(s): [id number], ACCESSION NUMBER(s): [id number] CLINICAL HISTORY: Vaginal bleeding COMPARISON: US PELVIC on DOS: 07/10/23, PELVIC on DOS: 06/07/19 TECHNIQUE: Transabdominal grayscale sonographic imaging of the uterus and ovaries was performed, assisted by color Doppler technique. Duplex Doppler ultrasound of both ovaries was also performed. Patient refused transvaginal imaging. FINDINGS: The uterus measures 13.0 x 6.5 x 5.6 cm. There is heterogeneous echogenicity. Hypoechoic mass along the left side of the uterine fundus , likely subserosal fibroid measuring up to 1.8 cm. Endometrial thickness measures 0.8 cm, within normal limits or premenopausal. Cervix appears prominent. Heterogeneous echogenicity of the cervix. Possible small fluid collection in the cervix Neither ovary was able to be visualized. IMPRESSION: 1. Heterogeneous uterus with possible fibroid. 2. Cervix is prominent and heterogeneous with suspected fluid in the endocervical canal. 3. Neither ovary was able to be visualized. ATED BY: CHAPITO FLORES DO DICTATED DATE/TIME: 02/23/24 1440 e-Prescriptions Dicyclomine Hcl (BENTYL CAPSULE) 10 Mg Cp 2 CAP PO QID PRN, #30 CAP 11 Refills prn abdominal pain Prov: ANGELICA CARDONA MD 02/23/24 Ondansetron Odt 4MG Tab (ZOFRAN PO) 4 Mg Tb 4 MG PO TID PRN, #30 TAB prn nausea/vomiting ODT TAB-DISSOLVE IN MOUTH, THEN SWALLOW Prov: ANGELICA CARDONA MD 02/23/24 Medroxyprogesterone Acetate (Medroxyprogesterone Aceta) 10 Mg Tab 10 MG PO DAILY for 10 Days, #10 TAB Prov: ANGELICA CARDONA MD 02/23/24 Discharged With: Self Critical Care Note Critical Care Time?: No Stability Stability form required: No Heart Score Heart Score: Heart Score Response (Comments) Value History N/A 0 EKG N/A 0 Age N/A 0 Risk Factors N/A 0 Troponin N/A 0 Total 0 I personally scribed for ANGELICA CARDONA MD ([facility] on 02/23/24 at 13:01. Electronically submitted by Williams Prado [facility] I personally scribed for ANGELICA CARDONA MD ([facility]) on 02/23/24 at 14:59. Electronically submitted by Williams Prado ([facility] ANGELICA CARDONA MD Feb 23, 2024 13:01
[2024-02-23 13:16] LABS: Urine Bacteria None Seen /hpf (None Seen)
[2024-02-23 13:25] LABS: Urine Blood 3+ /uL (Negative); Urine Clarity Ex.Turbid (Clear); Urine Color Light-Red (Yellow); Urine Protein, UAD 1+ (Negative); Urine Specific Gravity 1.025 (1.001-1.035); Urine Urobilinogen Normal (Negative); Urine WBC 110 /hpf (0 - 5); Urine pH 5.5 (5.0-9.0)
[2024-02-23 13:42] LABS: Basophils # (auto) 0 10 ^3/uL (0-0.2); Eosinophils # (auto) 0.1 10 ^3/uL (0-0.8); Monocytes # (auto) 0.5 10 ^3/uL (0-1.3); Neutrophils % (auto) 63.2 % (37.0-80.0); Red Blood Cells 4.12 10^6/uL (4.0-5.20)
[2024-02-23 13:43] LABS: Basophils % (auto) 0.3 % (0.0-2.0); Eosinophils % (auto) 1.6 % (0.0-7.0); Hematocrit 32.4 % (36.0-46.0); Hemoglobin 10.4 g/dL (12.2-16.2); Lymphocytes # (auto) 2.3 10 ^3/uL (0.4-5.4); Lymphocytes % (auto) 28.8 % (10.0-50.0); Mean Corpuscular Hemoglobin 25.3 pg (28.0-32.0); Mean Corpuscular Hgb Conc. 32.1 g/dL (32.0-36.0); Mean Corpuscular Volume 78.6 fL (80.0-100.0); Monocytes % (auto) 6.1 % (0.0-12.0); Neutrophils # (auto) 4.9 10 ^3/uL (1.6-8.6); Nucleated Red Blood Cells % 0.1 %; Platelet Count (auto) 455 10^3/uL (140-450); Red Cell Distribution Width 18.7 % (11.8-14.3); White Blood Cell 7.8 10^3/uL (4.4-10.8)
[2024-02-23 13:51] LABS: Chloride 104 mmol/L (98-107); Potassium 3.5 mmol/L (3.5-5.1); Sodium 139 mmol/L (136-145)
[2024-02-23 13:52] LABS: Anion Gap 7 (5-15); Carbon Dioxide 28 mmol/L (20-31)
[2024-02-23 13:53] LABS: Calcium 8.9 mg/dL (8.7-10.4)
[2024-02-23 13:55] LABS: INR 0.99 (0.9-1.15); Partial Thromboplastin Time 25.7 SEC (24.5-34.5); Prothrombin Time 10.5 sec (9.3-11.8)
[2024-02-23 13:58] LABS: BUN/Creatinine Ratio 14.8 (10.0-20.0); Blood Urea Nitrogen 9 mg/dL (9-23); Glucose 124 mg/dL (74-106)
--- NOTE | 2024-02-23 14:42 | DVH ---
CLINICAL HISTORY: Vaginal bleeding COMPARISON: US PELVIC on DOS: 07/10/23, PELVIC on DOS: 06/07/19 TECHNIQUE: Transabdominal grayscale sonographic imaging of the uterus and ovaries was performed, assi sted by color Doppler technique. Duplex Doppler ultrasound of both ovaries was also performed. Patien t refused transvaginal imaging. FINDINGS: The uterus measures 13.0 x 6.5 x 5.6 cm. There is heterogeneous echogenicity. Hypoechoic ma ss along the left side of the uterine fundus , likely subserosal fibroid measuring up to 1.8 cm. Endo metrial thickness measures 0.8 cm, within normal limits or premenopausal. Cervix appears prominent. H eterogeneous echogenicity of the cervix. Possible small fluid collection in the cervix Neither ovary was able to be visualized. IMPRESSION: 1. Heterogeneous uterus with possible fibroid. 2. Cervix is prominent and heterogeneous with suspected fluid in the endocervical canal. 3. Neither ovary was able to be visualized.
--- NOTE | 2024-02-23 15:30 | DVH ---
Procedure: CT CT AB PEL WO CON-NO ORAL OR IV 02/23/2024 02:17 PM Indication: low abd pain Comparison Study: None available at time of dictation. Technique: Axial images were obtained and reformatted in coronal and sagittal planes. All CT scans at this medical facility are performed using dose modulation techniques as appropriate t o a performed exam including the following: Automated exposure control was utilized; adjustment of th e MA and/or KV according to patient size; and use of iterative reconstruction technique. CT Dose: CTDI volume is 15.32 mGy. Dose-length product is 769.51 mGy*cm FINDINGS: Lower Chest: Unremarkable. Hepatobiliary: Gallbladder is surgically absent. Hepatic steatosis. Spleen: Unremarkable. Pancreas: Unremarkable. Adrenal Glands: Unremarkable. tract: The kidneys are normal in size bilaterally without hydronephrosis . Few subcentimeter nono bstructing bilateral renal calculi are seen measuring up to 3 mm The urinary bladder is unremarkable . GI tract: The stomach is grossly normal in appearance. No evidence of small bowel obstruction. The la rge bowel is unremarkable. The appendix is normal. Lymphatics: No mesenteric, retroperitoneal or periportal lymphadenopathy. Vasculature: The abdominal aorta is normal in in caliber. Pelvic Organs: Elongated uterus. No adnexal lesions identified. Bones/soft tissues: No acute abnormality. Other: None. IMPRESSION: 1. No CT evidence for acute intra-abdominal or intrapelvic process.
[2024-02-23] MEDS ORDERED: DICY10CA PO (16:42)
[2024-02-23] MEDS ORDERED: MEDR10TA9 PO (16:42)
[2024-02-23] MEDS ORDERED: ZOFR4T PO (16:42)
[2024-02-23] MEDS: ONDANSETRON ODT 4 MG TAB PO ONE (17:10)
[2024-02-23] MEDS: HYDROcodone-ACET 5/325MG TAB PO ONE (17:10)
== END 2024-02-23 16:45 | disposition home or self-care (01) ==
LOC: ER 12:30
DX: D25.9 Leiomyoma of uterus, unspecified (principal); R10.2 Pelvic and perineal pain; D64.9 Anemia, unspecified; Z90.49 Acquired absence of other specified parts of digestive tract; Z90.89 Acquired absence of other organs; Z79.3 Long term (current) use of hormonal contraceptives; Z79.899 Other long term (current) drug therapy
CPT/HCPCS: 36415; 74176; 76856; 80048; 81001; 84702; 85025; 85610; 85730; 86850; 86900; 86901; 99284; Q0162

== ENCOUNTER 2024-03-25 12:59 | Emergency (ER) | payer MEDICAID, SELFPAY ==
[~2024-03-25] VITALS: Ht 149.9 cm; Wt 77.2 kg
[~2024-03-25 12:59] MED LIST changes: +DICY10CA PO; +MEDR10TA9 PO; +ZOFR4T PO
[2024-03-25 14:05] LABS: Basophils # (auto) 0 10 ^3/uL (0-0.2); Monocytes # (auto) 0.5 10 ^3/uL (0-1.3); Nucleated Red Blood Cells % 0.1 %
[2024-03-25 14:09] LABS: Basophils % (auto) 0.2 % (0.0-2.0); Eosinophils # (auto) 0.2 10 ^3/uL (0-0.8); Eosinophils % (auto) 1.9 % (0.0-7.0); Hematocrit 29.7 % (36.0-46.0); Lymphocytes # (auto) 2.3 10 ^3/uL (0.4-5.4); Lymphocytes % (auto) 27.7 % (10.0-50.0); Mean Corpuscular Hemoglobin 22.8 pg (28.0-32.0); Mean Corpuscular Hgb Conc. 30.2 g/dL (32.0-36.0); Mean Corpuscular Volume 75.4 fL (80.0-100.0); Monocytes % (auto) 6.5 % (0.0-12.0); Neutrophils # (auto) 5.2 10 ^3/uL (1.6-8.6); Neutrophils % (auto) 63.7 % (37.0-80.0); Platelet Count (auto) 459 10^3/uL (140-450); Red Blood Cells 3.94 10^6/uL (4.0-5.20); Red Cell Distribution Width 20.6 % (11.8-14.3); White Blood Cell 8.2 10^3/uL (4.4-10.8)
--- NOTE | 2024-03-25 14:13 | DVH ---
CHEST RADIOGRAPH Indication: near syncope Technique: Single frontal view of the chest was obtained Comparison: EKG on DOS: 01/14/22 FINDINGS: Lines and Tubes: None Lungs: No focal consolidation. Pleura: No effusion. No pneumothorax. Cardiomediastinal contours: Unremarkable Bones: No acute osseous abnormality. IMPRESSION: 1. No radiographic evidence of acute cardiopulmonary disease. HS:Y
[2024-03-25 14:17] LABS: Chloride 104 mmol/L (98-107); Potassium 3.9 mmol/L (3.5-5.1); Sodium 140 mmol/L (136-145)
[2024-03-25 14:18] LABS: Anion Gap 6 (5-15); Calcium 9.3 mg/dL (8.7-10.4); Carbon Dioxide 30 mmol/L (20-31)
--- NOTE | 2024-03-25 14:18 | ED.PDOC ---
History of Present Illness HPI Comments 48Y F with PMHx anemia presents to ED for chief complaint migraines x1week with muscle pain, dizziness, and nausea. Pt states she has had fainting episodes in the past, with the last episode being a few weeks ago. Pt denies all urinary symptoms. Pt has also been experiencing menorrhagia since September 2023, which is the cause of her anemia. Pt had a blood transfusion one month ago. Chief Complaint: Dizziness Time Seen by MD: 13:48 Primary Care Provider: KAMI Reviewed Notes: Nurses Notes, Medications, Allergies Allergies: Coded Allergies: NO KNOWN ALLERGIES (Unverified , 06/07/19) Home Meds Active Scripts Dicyclomine Hcl (BENTYL CAPSULE) 10 Mg Cp, 2 CAP PO QID PRN, #30 CAP 11 Refills prn abdominal pain Prov:ANGELICA CARDONA MD 02/23/24 Ondansetron Odt 4MG Tab (ZOFRAN PO) 4 Mg Tb, 4 MG PO TID PRN, #30 TAB prn nausea/vomiting ODT TAB-DISSOLVE IN MOUTH, THEN SWALLOW Prov:ANGELICA CARDONA MD 02/23/24 Medroxyprogesterone Acetate (Medroxyprogesterone Aceta) 10 Mg Tab, 10 MG PO DAILY for 10 Days, #10 TAB Prov:ANGELICA CARDONA MD 02/23/24 Nitrofurantoin Monohydrate Mac (Macrobid) 100 Mg Cap, 100 MG PO BID for 7 Days, #14 CAP Prov:KATARINA KRAMERP 10/13/23 Ferrous Sulfate (Iron) 325 Mg Tab, 325 MG PO BID for 60 Days, #120 TAB Prov:SHIV KIRBY EDUCATION ADMINISTRATIVE ASSISTANT 07/11/23 Hydrocodone-Acetaminophen (Hydrocodone Bitartrate/AC 5-325 mg) 1 Tab Tab, 1 TAB PO QIDPRN, #20 TAB Prov:MARCI GALVIN MD 01/14/22 Ondansetron (Zofran) 4 Mg Tab, 4 MG PO QIDPRN, #20 MG Prov:MARCI GALVIN MD 01/14/22 Sucralfate (CARAFATE) 1 Gm Tab, 1 GM PO BID, #60 TAB Prov:RACHAEL GARRIDO MD 06/10/19 Topiramate (Topiramate) 25 Mg Tab, 25 MG PO BID, #60 TAB Prov:RACHAEL GARRIDO MD 06/10/19 Pantoprazole Sodium Sesquihydr (Protonix) 40 Mg Tab, 40 MG PO DAILY, #30 TAB Prov:RACHAEL GARRIDO MD 06/10/19 Ferrous Sulfate (FERROUS SULFATE) 325 Mg Tb, 1 TAB PO BID, #60 TAB Prov:RACHAEL GARRIDO MD 06/09/19 Information Source: Patient Mode of Arrival: Ambulatory Severity: Mild Timing: Weeks Duration: Since onset Past Medical History PAST MEDICAL HISTORY: Anemia Surgical History: Cholecystectomy, , 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 [employer] History: Other Family History Family History: Reviewed,noncontributory to illness Social History Smoker: Non-Smoker Alcohol: Denies ETOH Use Drugs: Denies Drug Use Lives In: Home Constitutional: denies: chills, diaphoresis, fatigue, fever, malaise, sweats, weakness, others EENTM: denies: blurred vision, double vision, ear bleeding, ear discharge, ear drainage, ear pain, ear ringing, eye pain, eye redness, hearing loss, mouth pain, mouth swelling, nasal discharge, nose bleeding, nose congestion, nose pain, photophobia, tearing, throat pain, throat swelling, voice changes, others Respiratory: denies: cough, hemoptysis, orthopnea, SOB at rest, shortness of breath, SOB with excertion, stridor, wheezing, others Cardiovascular: denies: chest pain, dizzy spells, diaphoresis, Dyspnea on exertion, edema, irregular heart beat, left arm pain, lightheadedness, palpitations, PND, syncope, others Gastrointestinal: reports: nausea; denies: abdomen distended, abdominal pain, blood streaked bowels, constipated, diarrhea, dysphagia, difficulty swallowing, hematemesis, melena, poor appetite, poor fluid intake, rectal bleeding, rectal pain, vomiting, others Genitourinary: denies: abnormal vagina bleeding, burning, dyspareunia, dysuria, flank pain, frequency, hematuria, incontinence, pain, , vagina discharge, urgency, others Neurological: reports: dizziness, headache; denies: fainting, left sided numbness, left sided weakness, numbness, paresthesia, pre-existing deficit, right sided numbness, right sided weakness, seizure, speech problems, tingling, tremors, weakness, others Musculoskeletal: reports: muscle pain; denies: back pain, gout, joint pain, joint swelling, muscle stiffness, neck pain, others Integumetry: denies: bruises, change in color, change in hair/nails, dryness, laceration, lesions, lumps, rash, wounds, others Allergic/Immunocompromised: denies: Difficulty Healing, Frequent Infections, Hives, Itching, others Hematologic/Lymphatic: denies: anemia, blood clots, easy bleeding, easy bruising, swollen glands, others Endocrine: denies: excessive hunger, excessive sweating, excessive thirst, excessive urination, flushing, intolerance to cold, intolerance to heat, unexplained weight gain, unexplained weight loss, others Psychiatric: denies: anxiety, bipolar disorder, depression, hopeless, panic disorder, schizophrenia, sleepless, suicidal, others All Other Systems: Reviewed and Negative Physical Exam General Appearance: No Apparent Distress, Normal HEENT: Normal ENT Inspection, Pharynx Normal, TMs Normal Neck: Full Range of Motion, Non-Tender, Normal, Normal Inspection Respiratory: Chest Non-Tender, Lungs Clear, No Accessory Muscle Use, No Respiratory Distress, Normal Breath Sounds Cardiovascular: No Edema, No JVD, No Murmur, No Gallop, Normal Peripheral Pulses, Regular Rate/Rhythm Breast Exam: Deferred Gastrointestinal: No Organomegaly, Non Tender, No Pulsatile Mass, Normal Bowel Sounds, Soft Genitalia: Deferred Pelvic: Deferred Rectal: Deferred Extremities: No calf tenderness, Normal capillary refill, Normal inspection, Normal range of motion, Non-tender, No pedal edema Musculoskeletal : Apperance: Normal Neurologic: Alert, wax room supervisor II-XII nml as Tested, No Motor Deficits, Normal Affect, Normal Mood, No Sensory Deficits Cerebellar Function: NOT DONE Reflexes: NOT DONE Skin: Dry, Normal Color, Warm Lymphatic: No Adenopathy Was a procedure done? Was a procedure done?: No Differential Dx Considerations may include: Electrolyte abnormality, symptomatic anemia, CVA, ACS X-Ray, Labs, Meds, VS Vital Signs Date Time Temp Pulse Resp B/P (MAP) Pulse Ox O2 Delivery O2 Flow Rate FiO2 03/25/24 16:49 98.3 84 17 114/69 (84) 96 98.3 1/2/25 16:49 84 17 96 Room Air 03/25/24 13:34 98.0 92 18 117/74 (88) 95 03/25/24 13:29 82 Lab Test 03/25/24 16:40 03/25/24 14:53 03/25/24 13:46 Range/Units Troponin I High Sensitivity < 3 L < 3 L < 3 L </=34 ng/L White Blood Count 8.2 4.4-10.8 10^3/uL Red Blood Count 3.94 L 4.0-5.20 10^6/uL Hemoglobin 9.0 L 12.2-16.2 g/dL Hematocrit 29.7 L 36.0-46.0 % Mean Corpuscular Volume 75.4 L 80.0-100.0 fL Mean Corpuscular Hemoglobin 22.8 L 28.0-32.0 pg Mean Corpuscular Hemoglobin Concent 30.2 L 32.0-36.0 g/dL Red Cell Distribution Width 20.6 H 11.8-14.3 % Platelet Count 459 H 140-450 10^3/uL Mean Platelet Volume 7.2 6.9-10.8 fL Neutrophils (%) (Auto) 63.7 37.0-80.0 % Lymphocytes (%) (Auto) 27.7 10.0-50.0 % Monocytes (%) (Auto) 6.5 0.0-12.0 % Eosinophils (%) (Auto) 1.9 0.0-7.0 % Basophils (%) (Auto) 0.2 0.0-2.0 % Neutrophils # (Auto) 5.2 1.6-8.6 10 ^3/uL Lymphocytes # (Auto) 2.3 0.4-5.4 10 ^3/uL Monocytes # (Auto) 0.5 0-1.3 10 ^3/uL Eosinophils # (Auto) 0.2 0-0.8 10 ^3/uL Basophils # (Auto) 0 0-0.2 10 ^3/uL Nucleated Red Blood Cells 0.1 % Sodium Level 140 136-145 mmol/L Potassium Level 3.9 3.5-5.1 mmol/L Chloride Level 104 98-107 mmol/L Carbon Dioxide Level 30 20-31 mmol/L Anion Gap 6 5-15 Blood Urea Nitrogen 8 L 9-23 mg/dL Creatinine 0.68 0.550-1.02 mg/dL Glomerular Filtration Rate Calc 107 >90 mL/min BUN/Creatinine Ratio 11.8 10.0-20.0 Serum Glucose 134 H 74-106 mg/dL Calcium Level 9.3 8.7-10.4 mg/dL Current Medications Medications (Trade) Dose Ordered Sig/Amee Route Start Time Stop Time Status Last Admin Sodium Chloride 1,000 ml @ 1,000 mls/hr Q1H ONCE IV 03/25/24 13:45 03/25/24 14:44 DC 03/25/24 16:58 Ondansetron HCl (Zofran) 4 mg ONCE ONCE IV 03/25/24 13:45 03/25/24 13:46 DC 03/25/24 17:08 Acetaminophen (Tylenol Tablet) 650 mg ONCE ONCE PO 03/25/24 13:45 03/25/24 13:46 DC 03/25/24 16:58 Metoclopramide HCl (Reglan Injection) 10 mg ONCE ONCE IV 03/25/24 13:45 03/25/24 13:46 DC 03/25/24 17:08 [place] [id number] Ph: [phone] DIAGNOSTIC IMAGING Diagnostic Imaging Report : [id number] Signed PATIENT: CRISTINA HILLCCT: [id number] UNIT: [id number] : 1975 LOC: ER ROOM / BED: / AGE / SEX: 48 / F ADM STATUS: REG ER SERVICE [id number] ORDERING PHYSICIAN: ZEYNEP RICO MD PROCEDURE(s): CXRP - CHEST PORTABLE REASON: near syncope ORDER NUMBER(s): [id number], ACCESSION NUMBER(s): [id number] CHEST RADIOGRAPH Indication: near syncope Technique: Single frontal view of the chest was obtained Comparison: EKG on DOS: 01/14/22 FINDINGS: Lines and Tubes: None Lungs: No focal consolidation. Pleura: No effusion. No pneumothorax. Cardiomediastinal contours: Unremarkable Bones: No acute osseous abnormality. IMPRESSION: 1. No radiographic evidence of acute cardiopulmonary disease. HS:Y ATED BY: RICHARD GREGORY DO DICTATED DATE/TIME: 03/25/241410 SIGNED BY: RICHARD GREGORY DO SIGNED DATE/TIME: 03/25/241410 CC: [place] [id number] Ph: [phone] DIAGNOSTIC IMAGING Diagnostic Imaging Report : [id number] Signed PATIENT: CRISTINA HILLCCT: [id number] UNIT: [id number] : 1975 LOC: ER ROOM / BED: / AGE / SEX: 48 / F ADM STATUS: REG ER SERVICE [id number] ORDERING PHYSICIAN: ZEYNEP RICO MD PROCEDURE(s): HWOCT - HEAD WITHOUT CONTRAST REASON: near syncope ORDER NUMBER(s): [id number], ACCESSION NUMBER(s): [id number] EXAM: CT HEAD WITHOUT CONTRAST INDICATION: near syncope TECHNIQUE: CT of the head without intravenous contrast. Radiation Dose Information: CT Dose: CTDI volume is 54.15 mGy. Dose-length product is 759.87 mGy*cm The dose indicators for CT are the volume Computed Tomography (CT) Dose Index (CTDIvol) and the Dose Length Product (DLP), and are measured in units of mGy and mGy-cm, respectively. These indicators are not patient dose, but values generated from the CT scanner acquisition factors. The report includes radiation exposure data for exposures received during this examination. COMPARISON: HEAD WITHOUT CONTRAST on DOS: 06/08/19 FINDINGS: There is no evidence of acute intracranial hemorrhage, extra-axial collection, mass effect, midline shift, herniation or hydrocephalus. The ventricles, sulci and cisterns are age appropriate. The cruz-white differentiation is intact. Patchy periventricular and subcortical white matter hypoattenuation is nonspecific but may be related to small vessel ischemic disease. Bilateral maxillary and ethmoid sinus opacities. Asymmetric pneumatization of the mastoid air cells. Trace bilateral mastoid effusions. The surrounding soft tissues and osseous structures are unremarkable. IMPRESSION: 1. No CT evidence of acute intracranial abnormality. 2. Trace bilateral mastoid effusions. Recommend correlation to exclude mastoiditis. 3. Findings suggestive of sinusitis. HS:Y ATED BY: RICHARD GREGORY DO DICTATED DATE/TIME: 03/25/241636 SIGNED BY: RICHARD GREGORY DO SIGNED DATE/TIME: 03/25/241636 CC: Time of 1ST Reevaluation: 14:18 Reevaluation 1ST: Unchanged Patient Education/Counseling: Diagnosis, Treatment Family Education/Counseling: No Family Present Departure 1 Departure Time of Disposition: 17:50 (Patient presented with syncope today and should be admitted. Data: 1. I ordered and reviewed the result of at least 3 labs including a CBC, BMP, and troponin. 2. I independently interpreted the following tests: EKG which shows a normal sinus and a chest x-ray which shows benign chest and a CT head which shows benign brain.Risk:This patient has a high risk of morbidity due to further diagnostic testing or treatment and may suffer from an acute cardiac, neurologic, or infectious disorder. Rationale: Patient should be admitted to the hospital for further management.) Impression: Primary Impression: Near syncope Additional Impressions: Dizziness Generalized weakness Disposition: 09 ADMITTED INPATIENT Admit to: Med Surg Condition: Serious Critical Care Note Critical Care Time?: No Stability Stability form required: No Heart Score Heart Score: Heart Score Response (Comments) Value History N/A 0 EKG N/A 0 Age N/A 0 Risk Factors N/A 0 Troponin N/A 0 Total 0 I personally scribed for ZEYNEP RICO MD ([facility] on 03/25/24 at 14:17. Electronically submitted by Donna Rivera ([facility]). I personally scribed for ZEYNEP RICO MD ([facility]) on 03/25/24 at 16:05. Electronically submitted by Donna Rivera ([facility]). I personally scribed for ZEYNEP RICO MD ([facility]) on 03/25/24 at 17:48. Electronically submitted by Donna iRvera ([facility]). ZEYNEP RICO MD Mar 25, 2024 14:17
[2024-03-25 15:50] LABS: BUN/Creatinine Ratio 11.8 (10.0-20.0)
[2024-03-25 15:58] LABS: Blood Urea Nitrogen 8 mg/dL (9-23); Glucose 134 mg/dL (74-106)
--- NOTE | 2024-03-25 16:40 | DVH ---
EXAM: CT HEAD WITHOUT CONTRAST INDICATION: near syncope TECHNIQUE: CT of the head without intravenous contrast. Radiation Dose Information: CT Dose: CTDI volume is 54.15 mGy. Dose-length product is 759.87 mGy*cm The dose indicators for CT are the volume Computed Tomography (CT) Dose Index (CTDIvol) and the Dose Length Product (DLP), and are measured in units of mGy and mGy-cm, respectively. These indicators are not patient dose, but values generated from the CT scanner acquisition factors. The report includes radiation exposure data for exposures received during this examination. COMPARISON: HEAD WITHOUT CONTRAST on DOS: 06/08/19 FINDINGS: There is no evidence of acute intracranial hemorrhage, extra-axial collection, mass effect, midline s hift, herniation or hydrocephalus. The ventricles, sulci and cisterns are age appropriate. The cruz-white differentiation is intact. Patchy periventricular and subcortical white matter hypoattenuation is nonspecific but may be related to small vessel ischemic disease. Bilateral maxillary and ethmoid sinus opacities. Asymmetric pneumatization of the mastoid air cells. Trace bilateral mastoid effusions. The surrounding soft tissues and osseous structures are unremarkable. IMPRESSION: 1. No CT evidence of acute intracranial abnormality. 2. Trace bilateral mastoid effusions. Recommend correlation to exclude mastoiditis. 3. Findings suggestive of sinusitis. HS:Y
[2024-03-25] MEDS: SODIUM CHLORIDE 0.9% 1,000 ML IV ONE (16:58)
[2024-03-25] MEDS: ACETAMINOPHEN 325 MG TAB PO ONE (16:58)
[2024-03-25] MEDS: METOCLOPRAMIDE HCL 5MG/ml INJ 2ml VIAL IV ONE (17:08)
[2024-03-25] MEDS: ONDANSETRON HCL 4 MG/2 ML VIAL IV ONE (17:08)
[2024-03-25 17:59] LABS: Urine Bacteria None Seen /hpf (None Seen)
[2024-03-25 18:12] LABS: Urine Blood Negative /uL (Negative); Urine Clarity Clear (Clear); Urine Color Colorless (Yellow); Urine Mucus FEW (None Seen); Urine Protein, UAD Negative (Negative); Urine Specific Gravity 1.012 (1.001-1.035); Urine Squamous Epithelial Cell FEW /hpf (<5); Urine Urobilinogen Normal (Negative); Urine WBC 1 /hpf (0 - 5); Urine pH 6.5 (5.0-9.0)
[2024-03-25] MEDS ORDERED: MECL25CH85 PO (23:22)
[2024-03-25] MEDS ORDERED: AZIT500T66 PO (23:22)
[2024-03-26] MEDS: PIPERACILLIN-TAZOB 3.375GM 100 ML IV ONE (00:31)
[2024-03-26 00:32] VITALS: BP 122/76; PULSE 68; RESP 18; TEMP 97.8; O2SAT 96
--- NOTE | 2024-03-26 18:51 | ECG ---
[facility] Test Date: 2024-03-25 Test Time: 13:29:55 Pat Name: CRISTINA HILL Department: ER Room: Gender: F Staff Pharmacist: HILARIA : 1975 Requested By: ZEYNEP RICO Order Number: [id number] Reading MD: Measurements Intervals [place] Rate: 82 P: 48 PA: 150 QRS: 53 QRSD: 86 T: 40 QT: 372 QTc: 435 Interpretive Statements Sinus rhythm Please click the below link to view image of tracing.
== END 2024-03-26 00:32 | disposition home or self-care (01) ==
LOC: ER 12:59
DX: R55 Syncope and collapse (principal); R42 Dizziness and giddiness; M79.10 Myalgia, unspecified site; D64.9 Anemia, unspecified; N92.0 Excessive and frequent menstruation with regular cycle; Z79.3 Long term (current) use of hormonal contraceptives; Z79.899 Other long term (current) drug therapy; Z90.49 Acquired absence of other specified parts of digestive tract; Z90.89 Acquired absence of other organs
CPT/HCPCS: 36415; 70450; 71045; 80048; 81001; 83605; 84484; 85025; 87040; 93005; 96361; 96374; 96375; 99285; J2405; J2765; J7030